=== PATIENT | female | born 1965 | race Hispanic/Latino ===

== ENCOUNTER → 2018-02-01 | Outpatient (CLI) | payer MEDICAID | END | disposition home or self-care (01) | LOC: OIH 08:30 | PROVIDERS: ATTEND Internal Medicine | DX: M41.82 Other forms of scoliosis, cervical region (principal); M47.892 Other spondylosis, cervical region; M85.88 Other specified disorders of bone density and structure, other site | CPT/HCPCS: 71046; 72040; 72100 ==

== ENCOUNTER → 2019-11-20 | Outpatient (CLI) | payer MEDICAID | END | disposition home or self-care (01) | LOC: RAH 10:46 | PROVIDERS: ATTEND Internal Medicine | DX: M25.562 Pain in left knee (principal) | CPT/HCPCS: 73562 ==

== ENCOUNTER 2020-11-22 12:52 | Emergency (ER) | payer MEDICAID ==
[~2020-11-22] VITALS: Ht 167.6 cm; Wt 82.6 kg
[2020-11-22 12:55] VITALS: BP 165/94
[2020-11-22] MEDS ORDERED: HYDROCODONE/ACETAMINOPHEN 5/325 MG TAB PO ONE (14:30)
[2020-11-22 15:23] VITALS: BP 158/82
[2020-11-22] MEDS ORDERED: TRAM1TAB PO (15:26)
== END 2020-11-22 15:41 | disposition home or self-care (01) ==
LOC: EDH 12:52
DX: M17.11 Unilateral primary osteoarthritis, right knee (principal); Z88.0 Allergy status to penicillin; Z88.6 Allergy status to analgesic agent
CPT/HCPCS: 72100; 73562

== ENCOUNTER → 2020-11-22 | Outpatient (CLI) | payer MEDICAID ==
[~2020-11-22] MED LIST: TRAM1TAB PO
== END | disposition home or self-care (01) ==
LOC: RAH 10:19
PROVIDERS: ATTEND Internal Medicine
DX: M47.817 Spondylosis without myelopathy or radiculopathy, lumbosacral region (principal)
CPT/HCPCS: 72100